=== PATIENT | male | born 1970 | race Caucasian/White ===

== ENCOUNTER 2018-02-26 21:35 | Emergency (ER) | payer BC ==
--- NOTE | 2018-02-27 00:06 | ED ---
Abdominal Pain/Male - HPI Summary HPI Summary: Patient is a 47-year-old male who presents emergency department for a painful lump to his abdomen that started this evening. Patient states he was sitting in a chair when he developed acute chest lateral left lower abdominal pain and noticed a painful bulge. He has never had similar symptoms in the past. She denies history of abdominal surgeries. He denies recent sickness. Pain did not radiate. He denies nausea, vomiting, diarrhea, urinary symptoms. Symptoms are noted severity. Patient is currently pain-free. Patient does note he does heavy lifting at work on a daily basis. - History of Current Complaint Chief Complaint: EDAbdPain Stated Complaint: ABD PAIN Time Seen by Provider: 02/26/18 23:39 Pain Intensity: 1 - Allergies/Home Medications Allergies/Adverse Reactions: Allergies Allergy/AdvReac Type Severity Reaction Status Date / Time No Known Allergies Allergy Verified 09/22/13 12:34 PMH/Surg Hx/FS Hx/Imm Hx Previously Healthy: Yes Endocrine/Hematology History: Denies: Hx Diabetes, Hx Thyroid Disease Cardiovascular History: Denies: Hx Hypertension Respiratory History: Denies: Hx Asthma, Hx Chronic Obstructive Pulmonary Disease (COPD) GI History: Denies: Hx Ulcer - Surgical History Surgery Procedure, Year, and Place: 1988 Arthroscopic knee surgery. Lipoma removal on the left thigh Infectious Disease History: No Infectious Disease History: Denies: Hx Clostridium Difficile, Hx Hepatitis, Hx Human Immunodeficiency Virus (HIV), Hx of Known/Suspected MRSA, History Other Infectious Disease, Traveled Outside the [place] in Last 30 Days - Family History Known Family History: Positive: Other - Cancer Negative: Cardiac Disease, Diabetes, Blood Disorder - Social History Occupation: Employed Full-time Lives: With Family Alcohol Use: Weekly - at least 4 times every other day Substance Use Type: Reports: None Smoking Status (MU): Former Smoker Have You Smoked in the Last Year: Yes Review of Systems Constitutional: Negative Negative: Fever, Chills Positive: Abdominal Pain. Negative: Vomiting, Diarrhea, Nausea Genitourinary: Negative All Other Systems Reviewed And Are Negative: Yes Physical Exam Triage Information Reviewed: Yes Vital Signs On Initial Exam: Initial Vitals Temp Pulse Resp BP Pulse Ox 97.9 F 96 20 153/103 96 02/26/18 21:52 02/26/18 21:52 02/26/18 21:52 02/26/18 21:52 02/26/18 21:52 Vital Signs Reviewed: Yes Appearance: Positive: Well-Appearing - Patient sitting on bed in no acute distress. present. Skin: Positive: Warm, Dry Head/Face: Positive: Normal Head/Face Inspection Eyes: Positive: Normal Neck: Positive: Supple Abdomen Description: Positive: Other: - Obese. Abdomen is soft and nontender throughout all quadrants. Appreciate any masses. No rashes or signs of trauma. Neurological: Positive: Normal, CN Intact II-III Psychiatric: Positive: Normal Diagnostics - Vital Signs Vital Signs Temp Pulse Resp BP Pulse Ox 02/26/18 21:52 97.9 F 96 20 153/103 96 - Laboratory Lab Statement: Any lab studies that have been ordered have been reviewed, and results considered in the medical decision making process. Abdominal Pain Fem Course/Dx - Course Course Of Treatment: Patient presenting to the ER for an episode of a painful lump to his left lateral lower abdomen. He is currently pain free. Patient's who is present states that at the onset of pain she felt a lump to the lateral abdomen that is no longer there in the ER. Suspect pt. had an abdominal wall hernia that self reduced. Offered patient blood work and further evaluation but he is comfortable going home at this time to follow up with his family doctor. Advised to avoid heavy lifting. To return to the ER if fall and pain returned. Patient understands and agrees with plan. - Diagnoses Differential Diagnosis/HQI/PQRI: Appendicitis, Constipation, Diverticulitis, Ureteral Stone, Urinary Tract Infection Provider Diagnoses: Abdominal pain, Hernia Discharge - Sign-Out/Discharge Documenting (check all that apply): Discharge/Admit/Transfer - Discharge Plan Condition: Good Disposition: HOME Patient Education Materials: Acute Abdominal Pain (ED), Ventral Hernia (ED) Referrals: No Primary Care Phys,NOPCP [Primary Care Provider] - Additional Instructions: Call your PCP for a follow up appointment Avoid heavy lifting Return to ER if pain and bulge return - Billing Disposition and Condition Condition: GOOD Disposition: HOME
[2018-02-27 00:17] VITALS: BP 142/90
== END 2018-02-27 00:16 | disposition home or self-care (01) ==
LOC: ED 21:35
DX: R10.32 Left lower quadrant pain (principal); K46.9 Unspecified abdominal hernia without obstruction or gangrene; Z87.891 Personal history of nicotine dependence
CPT/HCPCS: 99282